=== PATIENT | female | born 1945 | race Caucasian/White ===

== ENCOUNTER 2024-08-02 12:23 | Day surgery (SDC) | payer MEDICARE, BC ==
[2024-08-02] MEDS: Tetracaine HCl/PF 0.5% 4 ML Bottle EYEBOTH SCH (10:06)
[2024-08-02] MEDS: Lidocaine 1% PF 2 ML SDV INJECT SCH (10:06)
[2024-08-02] MEDS: Phenylephrine 2.5% Ophth Soln 2 ML Bot EYELF SCH (10:06)
[2024-08-02] MEDS: Brimonidine 0.2% Ophth Soln 5 ML Bottle EYELF SCH (10:07)
[2024-08-02] MEDS: Pilocarpine 4% Ophth Soln 15 ML Bot EYELF SCH (10:07)
[2024-08-02] MEDS: Polymyxin B/Trimethoprim 10 ML Bottle EYELF SCH (10:07)
[2024-08-02] MEDS: Cefuroxime 10 MG/ML SYRINGE EYELF SCH (10:07)
[2024-08-02] MEDS: Tropicamide 1% Ophth Soln 3 ML Bottle EYELF SCH (12:57)
== END 2024-08-02 14:40 | disposition home or self-care (01) ==
LOC: JD.SDS 12:23
PROVIDERS: ATTEND Ophthalmology
DX: H25.813 Combined forms of age-related cataract, bilateral (principal); I10 Essential (primary) hypertension; H43.813 Vitreous degeneration, bilateral; H11.823 Conjunctivochalasis, bilateral; H02.422 Myogenic ptosis of left eyelid; Z87.891 Personal history of nicotine dependence; Z79.899 Other long term (current) drug therapy
CPT/HCPCS: A9270-GY; J0697; J3490

== ENCOUNTER 2024-08-30 12:59 | Day surgery (SDC) | payer MEDICARE, BC ==
[2024-08-30] MEDS: Brimonidine 0.2% Ophth Soln 5 ML Bottle EYERT SCH (11:48)
[2024-08-30] MEDS: Phenylephrine 2.5% Ophth Soln 2 ML Bot EYERT SCH (11:48)
[2024-08-30] MEDS: Lidocaine 1% PF 2 ML SDV INJECT SCH (11:48)
[2024-08-30] MEDS: Pilocarpine 4% Ophth Soln 15 ML Bot EYERT SCH (11:48)
[2024-08-30] MEDS: Tetracaine HCl/PF 0.5% 4 ML Bottle EYEBOTH SCH (11:48)
[2024-08-30] MEDS: Cefuroxime 10 MG/ML SYRINGE EYERT SCH (11:48)
[2024-08-30] MEDS: Polymyxin B/Trimethoprim 10 ML Bottle EYERT SCH (11:49)
[2024-08-30] MEDS: Tropicamide 1% Ophth Soln 3 ML Bottle EYERT SCH (13:49)
== END 2024-08-30 15:38 | disposition home or self-care (01) ==
LOC: JD.SDS 12:59
PROVIDERS: ATTEND Ophthalmology
DX: H25.811 Combined forms of age-related cataract, right eye (principal); H40.052 Ocular hypertension, left eye; Z96.1 Presence of intraocular lens; I10 Essential (primary) hypertension; Z87.891 Personal history of nicotine dependence; Z79.899 Other long term (current) drug therapy
CPT/HCPCS: 66984; A9270; J0697; J3490